=== PATIENT | female | born 1975 | race Caucasian/White ===

== ENCOUNTER 2017-09-22 08:30 | Inpatient (IN) | payer OTHER ==
[~2017-09-22] VITALS: Ht 167.6 cm; Wt 77.1 kg
[2017-09-29] MEDS ORDERED: DOCUSATE SODIU100 MG PO (10:34)
[2017-09-29] MEDS ORDERED: OXYC1TAB9 PO (10:34)
[2017-09-29] MEDS ORDERED: NABUMETONE750 MG PO (10:34)
[2017-09-29] MEDS ORDERED: GAS RELIEF125 MG PO (10:34)
[2017-09-29] MEDS ORDERED: FEOSOL325 MG PO (10:34)
== END 2017-09-29 12:06 | DRG 743 ==
LOC: SURH 09-26 05:30 → O/R 09-26 05:42 → SURH 09-26 08:30 → SURG-SUITE 09-26 08:30 → OB/GYN 09-26 10:33
PROVIDERS: Obstetrics & Gynecology; Urology
PROC: 0UT94ZZ Resection of Uterus, Percutaneous Endoscopic Approach (ICD-10-PCS; principal; 2017-09-26 05:30)
PROC: 0UT74ZZ Resection of Bilateral Fallopian Tubes, Percutaneous Endoscopic Approach (ICD-10-PCS; 2017-09-26 05:30)
DX: D25.1 Intramural leiomyoma of uterus (principal); D25.0 Submucous leiomyoma of uterus; D25.2 Subserosal leiomyoma of uterus; N72 Inflammatory disease of cervix uteri; I10 Essential (primary) hypertension; D50.0 Iron deficiency anemia secondary to blood loss (chronic)

== ENCOUNTER 2017-10-24 09:00 | Outpatient (CLI) | payer OTHER ==
[~2017-10-24 09:00] MED LIST: DOCUSATE SODIU100 MG PO; FEOSOL325 MG PO; GAS RELIEF125 MG PO; NABUMETONE750 MG PO; OXYC1TAB9 PO
== END 2017-10-24 09:08 | disposition home or self-care (01) ==
LOC: NUCLEAR 09:00
DX: I11.9 Hypertensive heart disease without heart failure (principal)